=== PATIENT | female | born 1955 | race Hispanic/Latino ===

== ENCOUNTER 2021-12-30 21:59 | Emergency (ER) | payer SELFPAY ==
[2021-12-30] MEDS ORDERED: TRAMADOL HCL 50 MG TAB PO STA (22:12)
== END 2021-12-30 23:35 | disposition left against medical advice (07) ==
LOC: ER 22:04
DX: S81.852A Open bite, left lower leg, initial encounter (principal); W54.0XXA Bitten by dog, initial encounter; S80.12XA Contusion of left lower leg, initial encounter; Z53.21 Procedure and treatment not carried out due to patient leaving prior to being seen by health care provider